=== PATIENT | male | born 1995 | race Hispanic/Latino ===

== ENCOUNTER 2024-03-14 18:51 | Emergency (ER) | payer OTHER ==
[~2024-03-14] VITALS: Ht 170.2 cm; Wt 132.0 kg
[2024-03-14] MEDS: ACETAMINOPHEN 325 MG TAB PO ONE (19:29)
[2024-03-14] MEDS: ONDANSETRON ODT 4MG TAB SL ONE (19:29)
[2024-03-14] MEDS: ONDANSETRON ODT 4MG TAB ONE (19:31)
[2024-03-14] MEDS: ACETAMINOPHEN 325 MG TAB ONE (19:32)
[2024-03-14] MEDS: ONDANSETRON 4MG INJ IVP ONE (19:41)
[2024-03-14] MEDS: 0.9%NACL 1000ML 1,000 ML IV ONE (20:16)
[2024-03-14 20:27] LABS: ADD UA MICROSCOPIC YES; APPEARANCE,URINE CLOUDY (CLEAR); BILIRUBIN,URINE NEGATIVE (NEGATIVE); COLOR,URINE YELLOW (YELLOW); GLUCOSE, URINE (UA) NEGATIVE (NEGATIVE); KETONES,URINE 60 mg/dL (NEGATIVE); LEUKOCYTE ESTERASE ,URINE NEGATIVE Leu/uL (NEGATIVE); NITRATE,URINE NEGATIVE (NEGATIVE); OCCULT BLOOD,URINE NEGATIVE (NEGATIVE); PROTEIN,URINE 30 mg/dL (NEGATIVE)
[2024-03-14 20:30] LABS: BACTERIA,URINE RARE /HPF (None Seen); MUCUS,URINE FEW LPF (None Seen); SQUAMOUS EPITHELIAL CELL,UR RARE /HPF (0-2); UNCLASSIFIED CRYSTAL 4 /HPF (None Seen)
[2024-03-14 20:39] LABS: BASOPHILS # (AUTO) 0.02 K/uL (0.00-0.20); BASOPHILS % (AUTO) 0.3 % (0.0-5.0); HEMATOCRIT 46.3 % (42-54); IMMATURE GRANULOCYTE ABSOLUTE 0.04 K/uL (0-1); LYMPHOCYTES # (AUTO) 0.8 K/uL (1.0-4.8); LYMPHOCYTES % (AUTO) 9.5 % (21.0-51.0); MEAN CORPUSCULAR HEMOGLOBIN 29.3 pg (27.0-33.0); MEAN CORPUSCULAR HGB CONC 34.1 g/dL (32.0-36.0); MEAN CORPUSCULAR VOLUME 85.7 fL (79-99); MONOCYTES # (AUTO) 0.5 K/uL (0.1-1.0); MONOCYTES % (AUTO) 6.4 % (3.0-13.0); NEUTROPHILS # (AUTO) 6.6 K/uL (1.8-7.7); NEUTROPHILS % (AUTO) 83.3 % (40.0-77.0); PLATELET COUNT (AUTO) 239 K/uL (130-400); RED CELL DISTRIBUTION WIDTH 12.3 % (11.0-15.5)
[2024-03-14 20:47] LABS: POTASSIUM 3.6 mmol/L (3.5-5.1)
[2024-03-14 20:56] LABS: ALBUMIN 3.9 g/dL (3.5-5.0); BILIRUBIN,TOTAL 1.3 mg/dL (0.2-1.0); TOTAL PROTEIN, SERUM 8.7 g/dL (6.0-8.3)
[2024-03-14 20:59] VITALS: BP 145/89; PULSE 70; RESP 20; O2SAT 99
[2024-03-14] MEDS ORDERED: ONDA-243 PO (21:48)
== END 2024-03-14 22:11 | disposition home or self-care (01) ==
LOC: EDH 18:51
DX: E87.8 Other disorders of electrolyte and fluid balance, not elsewhere classified (principal); R19.7 Diarrhea, unspecified; Z79.899 Other long term (current) drug therapy
CPT/HCPCS: 99283; 96374; 82550; 80053; 85025; 87088; 81001; 36415; J7030